=== PATIENT | male | born 1960 | race African-American/Black ===

== ENCOUNTER 2018-11-28 12:49 | Emergency (ER) | payer OTHER ==
[~2018-11-28] VITALS: Ht 167.6 cm; Wt 74.8 kg
[~2018-11-28 12:49] MED LIST: PANT40TA3 PO
[2018-11-28 13:11] VITALS: Ht 167.6 cm; Wt 74.8 kg
[2018-11-28] MEDS ORDERED: LIDOCAINE/MYLANTA 40 ML BTL PO ONE (15:30)
[2018-11-28] MEDS ORDERED: PANTOPRAZOLE (EC) 40 MG TAB PO ONE (15:30)
[2018-11-28 15:56] VITALS: BP 130/78; PULSE 80; RESP 20
== END 2018-11-28 15:57 | disposition home or self-care (01) ==
LOC: E/R 12:49
DX: K25.9 Gastric ulcer, unspecified as acute or chronic, without hemorrhage or perforation (principal); R40.2142 Coma scale, eyes open, spontaneous, at arrival to emergency department; R40.2362 Coma scale, best motor response, obeys commands, at arrival to emergency department; R40.2252 Coma scale, best verbal response, oriented, at arrival to emergency department
CPT/HCPCS: Z7502; Z7610; 99283